=== PATIENT | female | born 1995 | race Two or more races ===

== ENCOUNTER 2017-01-06 21:12 | Emergency (ER) | payer OTHER ==
[~2017-01-06] VITALS: Ht 157.5 cm; Wt 81.6 kg
[2017-01-06] MEDS ORDERED: LORazepam Inj 2mg/ml 1ml IM ONE (21:45)
[2017-01-06 22:16] VITALS: BP 133/80
--- NOTE | 2017-01-07 14:03 | Emergency Room Report ---
History of Present Illness General Chief Complaint: Overdose Source: Patient Present Illness HPI 21-year-old female presents to ED for evaluation. Patient is in police custody. Patient is here for medical clearance. Per EMS patient used methamphetamines today. Patient is tachycardic on arrival. Patient states she feels fine. Denies any chest pain or shortness of breath. Denies any dizziness or weakness. Denies any suicidal or homicidal ideation. No other aggravating or relieving factors. Denies any other associated symptom Allergies: Coded Allergies: No Known Allergies (Unverified , 01/06/17) Patient History Past Medical History: none Past Surgical History: none Pertinent Family History: none Social History: Denies: alcohol use, smoking Last Menstrual Period: UNKNOWN Now: No Immunizations: UTD Reviewed Nursing Documentation: PMH: Agreed, PSxH: Agreed Review of Systems All Other Systems: negative except mentioned in HPI Physical Exam Vital Signs Date Time Temp Pulse Resp B/P Pulse Ox O2 Delivery O2 Flow Rate FiO2 01/06/17 21:10 98.8 134 18 149/75 98 Room Air Sp02 EP Interpretation: reviewed, normal General Appearance: no apparent distress, alert, GCS 15, non-toxic Head: normocephalic, atraumatic Eyes: bilateral eye PERRL, bilateral eye normal inspection ENT: hearing grossly normal, normal pharynx, no angioedema, normal voice Neck: full range of motion, supple/symm/no masses Respiratory: chest non-tender, lungs clear, normal breath sounds, speaking full sentences Cardiovascular #1: no edema, tachycardia Cardiovascular #2: 2+ carotid (R), 2+ carotid (L), 2+ radial (R), 2+ radial (L) , 2+ dorsalis pedis (R), 2+ dorsalis pedis (L) Gastrointestinal: normal bowel sounds, non tender, soft, non-distended, no guarding, no rebound Rectal: deferred Genitourinary: normal inspection, no CVA tenderness Musculoskeletal: back normal, gait/station normal, normal range of motion, non- tender, calf tenderness Neurologic: alert, oriented x3, responsive, motor strength/tone normal, sensory intact, speech normal Psychiatric: judgement/insight normal, memory normal, no suicidal/homicidal ideation, anxious Reflexes: 3+ bicep (R), 3+ bicep (L), 3+ tricep (R), 3+ tricep (L), 3+ knee (R) , 3+ knee (L) Skin: normal color, no rash, warm/dry, well hydrated Lymphatic: no adenopathy Medical Decision Making Diagnostic Impression: Primary Impression: Medical clearance for incarceration Additional Impression: Substance abuse ER Course Hospital Course 21-year-old female presents to ED for and correction clearance. Admitted to using methamphetamines Clinical course Patient placed on stretcher. Handcuffs. After initial history, physical exam reveals a young female in no acute distress. Patient tachycardic. remainder of physical exam was unremarkable. Patient given Ativan and reassessment states she feels better. Tachycardia resolved. I believe patient be safely discharged into police custody. Diagnosis - medical clearance for incarceration , substance abuse stable and discharged into police custody Last Vital Signs Date Time Temp Pulse Resp B/P Pulse Ox O2 Delivery O2 Flow Rate FiO2 01/06/17 22:16 98.8 116 20 133/80 98 Room Air Status: improved Disposition: HOME, SELF-CARE Condition: Stable Departure Forms: [facility] Clearance Patient Instructions: Stimulant Use Disorder-Methamphetamines MEGAN YANES M.D. Jan 07, 2017 14:03
== END 2017-01-06 22:19 ==
LOC: EDBD 21:12 → EMR 21:42
DX: F15.10 Other stimulant abuse, uncomplicated (principal); R00.0 Tachycardia, unspecified
CPT/HCPCS: 96372; 99283